=== PATIENT | male | born 1970 | race Caucasian/White ===

== ENCOUNTER 2019-04-05 12:31 | Outpatient (CLI) | payer BC ==
--- NOTE | 2019-04-05 13:29 | RAD ---
Exam: Lumbar spine 3 views HISTORY: Chronic back pain FINDINGS: 5 lumbar type vertebra. Lumbar spine vertebral body height is maintained. No fracture Straightening of normal lumbar lordosis may be due to patient position or muscle spasm Spondylolisthesis: L4 upon L5: 2.4 mm of retrolisthesis L5 upon S1: 2 mm of anterolisthesis. Associated spondylolysis involving the L5 facets IMPRESSION: 1. Grade 1 anterolisthesis of L5 upon S1 with associated spondylolysis. 2. Grade 1 retrolisthesis of L4 upon L5. No associated spondylolysis.
== END 2019-04-05 12:32 | disposition home or self-care (01) ==
LOC: RAD 12:31
PROVIDERS: ATTEND Internal Medicine
DX: M54.5 Low back pain (principal); G89.29 Other chronic pain; M43.17 Spondylolisthesis, lumbosacral region; M43.16 Spondylolisthesis, lumbar region
CPT/HCPCS: 72100

== ENCOUNTER 2019-07-27 13:09 | Outpatient (CLI) | payer BC ==
--- NOTE | 2019-07-27 14:12 | RAD ---
LUMBAR SPINE SERIES FOUR VIEWS WITH FLEXION AND EXTENSION: 07/27/19 HISTORY: Spondylolisthesis. Vertebral bodies maintain normal height. There are degenerative osteophytes along the course of the s pine. Very minimal retrolisthesis of L4 on L5 and there is a spondylolisthesis of L5 on S1 which appe ars to be associated with pars defect. This reduces in extension and increases on the flexion views. IMPRESSION: Spondylolisthesis of L5 on S1 which worsens with flexion and improves slightly with extension. Assoc iated pars defect is noted. POS: [facility]
--- NOTE | 2019-07-27 14:37 | CT ---
CT OF LUMBAR SPINE PERFORMED WITHOUT CONTRAST ENHANCEMENT: 07/27/19 HISTORY: Back pain, spondylolisthesis. COMPARISON: Plain film examination done earlier today. The vertebral bodies maintain normal height. There is very minimal disc narrowing at the L5-S1 level. There is spondylolisthesis of approximately 4 to 5 mm at this level. There is bilateral pars defects associated with this finding. No significant periaortic adenopathy. The visualized portions of the kidneys appear unremarkable. SI joints appear normal. Review of disc levels does not show any significant disc bulge at any of the vertebral body levels. B orderline canal narrowing seen at L4-5 related to some mild facet changes and some minimal disc bulge . IMPRESSION: Spondylolisthesis with bilateral parts defects at L5-S1. POS: [facility]
== END 2019-07-27 13:10 | disposition home or self-care (01) ==
LOC: BICCT 13:09
PROVIDERS: ATTEND Neurological Surgery
DX: M43.16 Spondylolisthesis, lumbar region (principal); M47.816 Spondylosis without myelopathy or radiculopathy, lumbar region; M47.817 Spondylosis without myelopathy or radiculopathy, lumbosacral region
CPT/HCPCS: 72110; 72131

== ENCOUNTER 2019-11-13 | Outpatient (CLI) | payer BC | END 2019-11-13 10:30 | disposition home or self-care (01) | DX: M51.16 Intervertebral disc disorders with radiculopathy, lumbar region (principal); M43.17 Spondylolisthesis, lumbosacral region; M48.07 Spinal stenosis, lumbosacral region; M48.061 Spinal stenosis, lumbar region without neurogenic claudication ==

== ENCOUNTER 2021-04-24 15:39 | Outpatient (CLI) | payer BC | END 2021-04-24 15:40 | disposition home or self-care (01) | LOC: ULT 15:39 | PROVIDERS: ATTEND Nurse Practitioner Family | DX: E04.9 Nontoxic goiter, unspecified (principal) | CPT/HCPCS: 76536 ==